=== PATIENT | male | born 1965 | race Caucasian/White ===

== ENCOUNTER 2020-12-09 10:32 | Inpatient (IN) | payer BC, SELFPAY ==
[2020-12-09] VITALS (17 sets, daily range): BP systolic 82–144; BP diastolic 54–107; PULSE 88–123; RESP 12–24; TEMP 36.6–37.8; O2SAT 93–100; BMI 35.4; BMI 32.8
--- NOTE | ~2020-12-09 | CT_ITS ---
EXAMINATION: CT brain wo con INDICATION: Headache COMPARISON: None TECHNIQUE: Standard unenhanced head CT. The dose-length product (DLP) was 605.33 mGy-cm. The mA was a djusted according to patient size. Iterative reconstruction technique was employed. FINDINGS: There is no intracranial hemorrhage, acute infarction, or abnormal mass lesion. The ventric les are normal. There is no abnormal mass effect or midline shift. The lynn-white matter differentiat ion is normal. The basal cisterns are patent. The orbits are normal. There is mild mucosal thickening of the paranasal sinuses. IMPRESSION: 1. No acute intracranial abnormality. Reviewed, dictated and finalized at location A.
--- NOTE | ~2020-12-09 | XR_ITS ---
EXAMINATION: XR chest 2V DATE: 12/09/2020 11:34 INDICATION: Cough. TECHNIQUE: Frontal and lateral views of the chest were obtained. COMPARISON: None. FINDINGS: There are airspace opacities in left mid and lower lung zones. No pleural effusion or pneum othorax. The heart size is normal. There are changes of posterior fusion procedure in cervical spine. There are surgical clips in the abdomen. IMPRESSION: 1. Airspace opacities in left mid and lower lung zones suspicious for pneumonia. Reviewed, dictated and finalized at location A. IMPRESSION: 1. Airspace opacities in left mid and lower lung zones suspicious for pneumonia .
--- NOTE | ~2020-12-09 | CT_ITS ---
EXAMINATION: CT cervical spine wo con DATE: 12/14/2020 10:48 INDICATION: Neck pain TECHNIQUE: Computed tomography (CT) of the cervical spine was performed without intravenous contrast. The dose-length product (DLP) was 425.39 mGy-cm. Automated exposure control and iterative reconstruc tion technique were employed. COMPARISON: None FINDINGS: There are changes of anterior fusion from C4 through C6 and posterior fusion and laminectom y from C3 through C7. The vertebral body heights are normal. There is no fracture. The odontoid is in tact. Groundglass opacities are present in the right lung apex. IMPRESSION: 1. Surgical changes without acute osseous abnormality Reviewed, dictated and finalized at location A.
--- NOTE | ~2020-12-09 | CT_ITS ---
EXAMINATION: CTA chest PE protocol DATE: 12/14/2020 10:48 INDICATION: Shortness of breath TECHNIQUE: Computed tomography angiography (CTA) of the chest was performed with 100 mL Omnipaque-350 intravenous contrast timed to evaluate the pulmonary arteries. Coronal maximum intensity projection 3D-reconstructions were created by the technologist. The dose-length product (DLP) was 932.05 mGy-cm. Automated exposure control and iterative reconstruction technique were employed. COMPARISON: None. FINDINGS: The pulmonary arteries are well-opacified. No pulmonary embolism is identified. There are g roundglass opacities involving all lung zones. No pleural effusion or pneumothorax is identified. The heart size is normal. There is mild bilateral hilar and mediastinal lymphadenopathy, likely reactive . The gallbladder is surgically absent. Surgical changes in the stomach likely reflect bariatric surg davian. There is mild thoracic spondylosis. IMPRESSION: 1. No pulmonary embolus. 2. Diffuse groundglass opacities in a pattern consistent with COVID 19 pneumonia. Reviewed, dictated and finalized at location A. IMPRESSION: 1. No pulmonary embolus. 2. Diffuse groundglass opacities in a pattern consistent with COVID 19 pneumoni a.
[2020-12-09 11:31] LABS: Eosinophils Percent Auto 0.5 % (0-4.4); Hematocrit 34.8 % (42.0-52.0); Hemoglobin 11.9 g/dL (14.0-18.0); Immature Granulocyte Absolute 0.02 K/mm3 (0.00-0.031); Immature Granulocyte Percent A 0.5 % (0-0.5); Lymphocytes Absolute Auto 0.31 K/mm3 (0.9-3.2); Lymphocytes Percent Auto 7.8 % (18.3-44.2); Mean Corpuscular HGB Conc 34.2 g/dl (32-36); Mean Corpuscular Hemoglobin 30.3 pg (26-34); Mean Corpuscular Volume 88.5 fl (80-100); Monocytes Absolute Auto 0.2 K/mm3 (0.1-0.6); Monocytes Percent Auto 4.3 % (2.6-8.5); Neutrophils Absolute Auto 3.5 K/mm3 (1.3-6.7); Neutrophils Percent Auto 86.9 % (45.5-73.1); Platelet Count Result 115 k/mm3 (150-375); Red Blood Count 3.93 M/mm3 (4.6-6.20); Red Cell Distribution Width 13.3 % (11.5-14.5)
[2020-12-09 11:43] LABS: Alanine Aminotransferase 28 U/L (4-50); Albumin Level 3.7 g/dL (3.5-5.1); Alkaline Phosphatase 80 U/L (38-126); Anion Gap 9 mmol/L (8-16); Aspartate Amino Transferase 43 U/L (17-59); Bilirubin,Total 0.8 mg/dL (0.2-1.3); Blood Urea Nitrogen 30 mg/dL (9-20); Calcium 9.1 mg/dL (8.4-10.2); Carbon Dioxide 27 mmol/L (22-30); Chloride 102 mmol/L (98-107); Estimated CRCL calculation 67 ml/min; Estimated Glomerular Filt Rate 57; Glucose 165 mg/dL (65-110); Potassium 3.7 mmol/L (3.4-5.0); Sodium 138 mmol/L (137-145)
[2020-12-09 12:03] LABS: Lactic Acid Reflex 1.6 mmol/L (0.7-2.1)
--- NOTE | 2020-12-09 13:32 | PC.NURSE ---
Per EDTaniya Espino via verbal order read-back, give another liter of normal saline
--- NOTE | 2020-12-09 13:32 | ED.GENADULT ---
HPI - General Adult General Chief complaint: Unspecified Stated complaint: arms hurting, COVID + Time Seen by Provider: 12/09/20 11:13 History of Present Illness HPI narrative: Patient is a 55-year-old male who presents ER with lightheadedness and change in vision. Ongoing over the last couple days. Associated with recent diagnosis of Covid. No runny nose or sore throat or productive cough. Reports he is diffusely achy. He has not had a Covid vaccination. No alleviating factors. Patient originally normotensive upon arrival here but then became hypotensive. He is unsure if this is related to his intermittent change in vision where he sees colors when he gets lightheaded. Related Data Allergies Allergy/AdvReac Type Severity Reaction Status Date / Time gabapentin Allergy Severe Other Verified 10/19/18 21:40 Review of Systems Review of Systems: All systems reviewed & are unremarkable except as noted in HPI and below Constitutional: Constitutional: Reports chills, Reports fatigue and Reports fever(s) Eyes: Eyes: Denies loss of vision and Reports spots in vision (When he gets lightheaded) Cardiovascular: Cardiovascular: Denies chest pain, Denies radiating jaw, neck or arm pain and Denies palpitations Respiratory: Respiratory: Denies chest congestion, Denies cough and Denies dyspnea Musculoskeletal: Musculoskeletal: Denies back pain, Reports myalgias and Denies muscle cramps Neurologic: Denies syncope, Denies focal weakness and Denies numbness PMFSH Past Medical History Medical History (Updated 12/09/20 @ 17:21 by Abdifatah Espino MD) Healthy adult male Surgical History Surgical History (Updated 12/09/20 @ 17:21 by Abdifatah Espino MD) No history of previous surgery Exam Narrative: GENERAL: Well-appearing, well-nourished, and in no acute distress. HEAD: Normocephalic, atraumatic. EYES: PERRL and EOMI. CHEST: Clear to auscultation. No respiratory distress. HEART: Regular rate and rhythm. Normal peripheral pulses. ABDOMEN: Soft, nontender, nondistended. EXTREMITIES: Normal range of motion. No edema. SKIN: Warm, dry, no rash. NEURO: Alert and oriented x3. PSYCH: Normal mood and affect. Course Course Emergency Course: Admit for observation. Patient with soft pressure. Has been hydrated. Will start on IV antibiotics for pneumonia as the area of infiltrate seems atypical for Covid pneumonia. Patient was [facility] and has developed this while in the ER. Vital Signs Vital signs: Vital Signs Temperature 99.7 F H 12/09/20 10:40 Pulse Rate 123 H 12/09/20 10:40 Respiratory Rate 18 12/09/20 10:40 Blood Pressure 144/107 H 12/09/20 10:40 Pulse Oximetry 99 12/09/20 10:40 Temperature 98.8 F 12/09/20 15:03 Pulse Rate 88 12/09/20 16:12 Respiratory Rate 16 12/09/20 16:12 Blood Pressure 96/69 L 12/09/20 16:12 Pulse Oximetry 100 12/09/20 16:12 Medical Decision Making Vital Signs Vital Signs: Vital Signs Temperature 99.7 F H 12/09/20 10:40 Pulse Rate 123 H 12/09/20 10:40 Respiratory Rate 18 12/09/20 10:40 Blood Pressure 144/107 H 12/09/20 10:40 Pulse Oximetry 99 12/09/20 10:40 Temperature 98.8 F 12/09/20 15:03 Pulse Rate 88 12/09/20 16:12 Respiratory Rate 16 12/09/20 16:12 Blood Pressure 96/69 L 12/09/20 16:12 Pulse Oximetry 100 12/09/20 16:12 Lab Data Result diagrams: 12/09/20 11:22 12/09/20 11:22 Labs: Lab Results 12/09/20 12/09/20 12/09/20 Range/Units 11:22 11:22 11:42 WBC 4.0 L (4.5-10.0) K/mm3 RBC 3.93 L (4.6-6.20) M/mm3 Hgb 11.9 L (14.0-18.0) g/dL Hct 34.8 L (42.0-52.0) % MCV 88.5 (80-100) fl MCH 30.3 (26-34) pg MCHC 34.2 (32-36) g/dl RDW 13.3 (11.5-14.5) % Plt Count 115 L (150-375) k/mm3 MPV 10.0 (7.4-10.4) fl Immature Gran % (Auto) 0.5 (0-0.5) % Neut % (Auto) 86.9 H (45.5-73.1) % Lymph % (Auto) 7.8 L (18.3
[2020-12-09] MEDS: SODIUM CHLORIDE 0.9% IV 1,000 ML 999 ML IV CONT (13:36)
--- NOTE | 2020-12-09 13:59 | PC.NURSE ---
Called lab. Magnesium added on at this time.
--- NOTE | 2020-12-09 14:05 | ECG_ITS ---
Measurements Intervals [place] Rate: 90 P: 62 AR: 173 QRS: -3 QRSD: 122 T: 18 QT: 362 QTc: 443 Interpretive Statements SINUS RHYTHM VENTRICULAR BIGEMINY INTRAVENTRICULAR CONDUCTION DELAY ABNORMAL ECG Electronically Signed On 12-09-2020 14:15:40 CDT by Tyshawn Xiao D.O.
[2020-12-09 14:41] LABS: Add Urine Microscopic? YES; Appearance Urine Clear (Clear); Bilirubin Urine Negative (Negative); Blood Urine Negative (Negative); Color Urine Yellow (Yellow); Glucose Urine UA Negative (Negative); Ketones Urine Trace mg/dL (Negative); Leukocyte Esterase Ur Negative LEU/UL (Negative); Nitrate Urine Negative (Negative); Protein Urine 1+ mg/dL (Negative); RBC Urine 0-2 /hpf (0-2); Specific Grav Ur 1.023 (1.001-1.035); WBC Clumps Urine Present /HPF; WBC Urine 16-20 /hpf
[2020-12-09 16:39] LABS: Magnesium 1.9 mg/dL (1.6-2.3)
[2020-12-09 16:54] LABS: Lactate Dehydrogenase 550 U/L (313-618)
[2020-12-09 17:11] LABS: CRP 15.5 mg/dL (<1.0)
[2020-12-09 17:24] LABS: Procalcitonin 1.7 ng/mL
--- NOTE | 2020-12-09 19:52 | PC.NURSE ---
May with the ED department called at 1930. Report given to this nurse. All questions answered and plan of care reviewed. Patient to go to IMU room 231.
--- NOTE | 2020-12-09 19:54 | ADMGEN ---
This patient, Los Joshi, was admitted to IMU Room 231-01 at 1945 from the Emergency department. Patient/family oriented to hospital policies and general routines including ID bracelet, bed and alarms, visiting hours, pain management, procedures, bathroom and other care routines, personal items, smoking policy, room service/diet, and visiting hours. Information on how to activate the Rapid Response Team has been discussed. Patient/Family are encouraged to report perceived risks to care and to ask questions if they do not understand what they are told or what they should do.
--- NOTE | 2020-12-09 21:09 | PM.IMHP ---
H&P: HPI History of Present Illness Date/Time: 12/09/20 21:09 Chief Complaint: MUSCLE ACHES AND PAIN Narrative: THIS IS A 55-YEAR-OLD MALE WITH PAST MEDICAL HISTORY SIGNIFICANT FOR CHRONIC PAIN SYNDROME PATIENT STATES THAT HE HAS HAD 30+ SURGERIES. HE PRESENTED TODAY TO THE EMERGENCY ROOM DUE TO MUSCLE ACHES AND PAINS GENERALIZED, NAUSEA VOMITING DIARRHEA, FEVERS CHILLS FOR ABOUT A WEEK OR SO. PATIENT DENIES ANY SHORTNESS OF BREATH ANY COUGH OR SPUTUM PRODUCTION HE HAS HAD VERY POOR APPETITE. HE HAS BEEN TAKING NYQUIL AT HOME. HE HAS TESTED POSITIVE FOR COVID-19 HIS IS ALSO SICK WITH COVID AT THE HOUSE HE DECIDED TO COME TO THE EMERGENCY ROOM TODAY DUE TO WORSENING BODY ACHES AND PAINS GENERAL MALAISE. PRELIMINARY WORKUP HAS BEEN SIGNIFICANT FOR ELEVATED INFLAMMATORY MARKERS A CHEST X-RAY WITH INFILTRATES. Review of Systems Review of Systems: BODY ACHES AND PAINS GENERALIZED MALAISE NAUSEA VOMITING AND DIARRHEA Constitutional: Constitutional: Denies chills, Reports fatigue, Denies fever(s), Reports lethargy, Reports malaise and Reports weakness Eyes: Eyes: Denies change in vision ENT: Denies dysphagia, Denies nasal congestion, Denies nasal discharge, Denies nasal obstruction and Denies odynophagia Cardiovascular: Cardiovascular: Denies irregular heart rhythm, Denies radiating jaw, neck or arm pain, Denies palpitations and Denies dyspnea Respiratory: Respiratory: Denies cough and Denies dyspnea Gastrointestinal: Gastrointestinal: Reports abdominal pain, Reports diarrhea, Reports nausea and Reports vomiting Genitourinary: Genitourinary: Reports no additional male genitourinary complaints Musculoskeletal: Musculoskeletal: Reports muscle weakness Integumentary/Breasts: Skin/Breast: Denies rash Neurologic: Reports system reviewed and no additional complaints, except as documented Psychiatric: Psychiatric: Reports no additional psychiatric complaints Endocrine: Endocrine: Reports no additional endocrine complaints Hematologic/Lymphatic: Hematologic/Lymphatic: Reports no additional hematologic/lymphatic complaints Allergic/Immunologic: Allergic/Immunologic: Reports no additional allergic/immunologic complaints [facility] Past Medical History Medical History (Updated 12/10/20 @ 00:54 by Eduardo Mijares MD) Healthy adult male Surgical History Surgical History (Updated 12/09/20 @ 17:21 by Abdifatah Espino MD) No history of previous surgery Family History Family History (Updated 12/09/20 @ 23:07 by Janki Copeland RN) Father Heart failure Mother Diabetes mellitus Sibling Diabetes mellitus Social History Social History Smoking packs per day: 1 Smoking cigarettes per day: 20.0 Years smoked: 25 Smoking pack-years: 25.00 Smoking status: Former smoker Tobacco type: cigarettes Alcohol intake: never Substance use: never Substance use type: does not use Gender identity (if verbalized by the patient): Male Spiritual care concerns: No Meds Home Medications and Allergies Home Medications Medication Instructions Recorded Confirmed Type amitriptyline 100 mg PO HS 12/09/20 12/09/20 History ibuprofen 800 mg PO TID PRN 12/09/20 12/09/20 History methocarbamol 750 mg PO TID 12/09/20 12/09/20 History morphine 15 mg PO Q8H 12/09/20 12/09/20 History pantoprazole 40 mg PO QAM 12/09/20 12/09/20 History simvastatin 40 mg PO HS 12/09/20 12/09/20 History valsartan 80 mg PO DAILY 12/09/20 12/09/20 History Allergies Allergy/AdvReac Type Severity Reaction Status Date / Time gabapentin Allergy Severe Other Verified 10/19/18 21:40 Vital Signs Vital Signs - 24 hr 12/09/20 10:40 12/09/20 11:01 12/09/20 11:51 Temperature 99.7 F H 100.1 F H Pulse Rate 123 H 112 H 97 Respiratory Rate 18 18 17 Blood Pressure 144/107 H 82/55 L 89/54 L Pulse Oximetry 99 95 99 12/09/20 12:19 12/09/20 12:34 12/09/20 13:47 Temperature 100.1 F H Pulse Rate 96 93 Respiratory Rate 20 [address]
[2020-12-10] VITALS (14 sets, daily range): BP systolic 100–136; BP diastolic 46–99; PULSE 73–109; RESP 12–20; TEMP 36.6–38.9; O2SAT 94–97
[2020-12-10] MEDS: methocarbamoL 750 MG TABLET PO ×3 (09:04→17:04)
[2020-12-10] MEDS: MORPHINE SULFATE (*CRX) 15 MG TABCR PO ×3 (09:04→23:39)
[2020-12-10] MEDS: PANTOPRAZOLE 40 MG TABLET PO (09:04)
[2020-12-10] MEDS: VALSARTAN 80 MG TABLET PO (09:04)
[2020-12-10] MEDS: ONDANSETRON INJ 4 MG/2 ML VIAL IV PUSH (13:09)
[2020-12-10] MEDS: polyethylene glycoL 3350 17 GM POWD.PACK PO (17:04)
--- NOTE | 2020-12-10 17:43 | PM.IMPN ---
Progress Note: A&P Assessment and Plan (1) Pneumonia due to COVID-19 virus: Code(s): U07.1 - COVID-19; J12.82 - Pneumonia due to coronavirus disease 2019 Status: Acute Assessment and Plan: On RA Continue with ROCEPHIN AND DOXYCYCLINE for now AWAIT CULTURE DOES NOT Meet CRITERIA FOR REMDESIVIR SUPPORTIVE CARE (2) Chronic pain syndrome: Code(s): G89.4 - Chronic pain syndrome Status: Acute Assessment and Plan: CONTINUE HOME PAIN MEDICATIONS CONTINUE TO MONITOR (3) Nausea and vomiting: Code(s): R11.2 - Nausea with vomiting, unspecified Status: Acute Assessment and Plan: SUPPORTIVE CARE CONTINUE TO MONITOR LIKELY SECONDARY TO PNEUMONIA AND SYSTEMIC INFLAMMATORY RESPONSE Subjective Date/time seen: 12/10/20 17:43 Interval history: pt seen and evaluated; no acute events overnight; denies any SOB Review of Systems Review of Systems: All systems reviewed & are unremarkable except as noted in HPI and below Exam Const: General: no acute distress, alert and awake Orientation/consciousness: patient oriented x3 HENMT: Head: normocephalic and atraumatic Ears: hearing grossly normal bilaterally and external ears normal Face and sinus: face symmetric Mouth: Yes Normal oral and palatal mucosa present Eyes: EOM: EOMs intact bilaterally Neck: Neck: full ROM, trachea midline and no JVD Thyroid: thyroid normal Chest: Chest palpation & inspection: normal inspection of the chest Resp: Effort & Inspection: normal respiratory effort Cardio: Jugular venous distension: no JVD Rate: regular rate Rhythm: regular rhythm Heart sounds: S1 normal heart sound present and S2 normal heart sound present GI: Inspection: normal to inspection GI Palp: Yes Soft to palpation Percussion: Yes normal to percussion Auscultation: normal bowel sounds : General: Yes no CVA tenderness Back/Spine/Pelvis: Back: no CVA tenderness Skin: General skin exam: normal color Rashes: no rashes Neuro: General: patient oriented x3 and CN's II-XI intact bilaterally Cranial nerves: Yes Equal, round and reactive pupils present Speech: normal speech Psych: Appearance: grossly normal Affect: normal affect Judgement: Good judgement present (Psych) Objective Data Vital Signs Vital Signs: Vital Signs - 24 hr 12/09/20 18:36 12/09/20 20:00 12/09/20 22:00 Temperature 36.6 C Pulse Rate 90 93 92 Respiratory Rate 16 20 Blood Pressure 105/65 107/56 L Pulse Oximetry 100 97 12/10/20 00:00 12/10/20 01:05 12/10/20 02:00 Temperature 36.9 C Pulse Rate 87 90 98 Respiratory Rate 16 Blood Pressure 100/59 L Pulse Oximetry 95 12/10/20 04:00 12/10/20 06:00 12/10/20 08:00 Temperature 36.6 C 37.1 C Pulse Rate 100 98 103 H Respiratory Rate 18 18 Blood Pressure 136/99 H 124/61 Pulse Oximetry 97 94 12/10/20 10:00 12/10/20 12:00 12/10/20 14:00 Temperature 37.6 C Pulse Rate 107 H 108 H 105 H Respiratory Rate 12 Blood Pressure 131/58 L Pulse Oximetry 95 Intake/Output Intake/Output: Intake & Output 12/07/20 12/08/20 12/09/20 12/10/20 23:59 23:59 23:59 23:59 Intake Total 4250 800 Output Total 200 450 Balance 4050 350 Meds/Results Medications: Active Medications Generic Name Dose Route Start Last Admin Trade Name Freq PRN Reason Stop Dose Admin Acetaminophen 650 mg 12/09/20 14:48 Acetaminophen 325 Mg Tablet PO Q4H PRN Mild Pain (1-3) or Fever Hydrocodone Bitart/Acetaminophen 1 tab 12/09/20 14:48 Hydrocodone/Acetaminophen (*Crx) 5-325 Mg Tablet PO Q4H PRN Pain Rated 4-6 Amitriptyline HCl 100 mg 12/10/20 21:00 Amitriptyline Hcl 25 Mg Tablet PO HS IRIVNG Doxycycline Hyclate 100 mg in 100 mls @ 100 mls/hr 12/10/20 06:00 12/10/20 17:04 Vibramycin 100 Mg/D5w 100 Ml IVPB 100 mls/hr Q12H IRVING Administration Ceftriaxone Sodium/Dextrose 1 gm in 50 mls @ 100 mls/hr 12/10/20 14:00 12/10/20 13:08 Ro
[2020-12-10] MEDS: ACETAMINOPHEN 325 MG TABLET 650 MG PO (17:46)
[2020-12-10] MEDS: SIMVASTATIN 20 MG TABLET 40 MG PO (20:48)
[2020-12-10] MEDS: AMITRIPTYLINE HCL 25 MG TABLET 100 MG PO (20:48)
[2020-12-11] VITALS (15 sets, daily range): BP systolic 89–130; BP diastolic 48–69; PULSE 69–103; RESP 16–22; TEMP 36.4–37.9; O2SAT 86–98
[2020-12-11] MEDS: MORPHINE SULFATE (*CRX) 15 MG TABCR PO ×3 (06:10→21:26)
[2020-12-11] MEDS: VALSARTAN 80 MG TABLET PO (09:27)
[2020-12-11] MEDS: PANTOPRAZOLE 40 MG TABLET PO (09:27)
[2020-12-11] MEDS: methocarbamoL 750 MG TABLET PO ×2 (09:27→13:31)
[2020-12-11 11:13] LABS: Hematocrit 31.3 % (42.0-52.0); Hemoglobin 10.4 g/dL (14.0-18.0); Mean Corpuscular HGB Conc 33.2 g/dl (32-36); Mean Corpuscular Hemoglobin 30.1 pg (26-34); Mean Corpuscular Volume 90.7 fl (80-100); Platelet Count Result 119 k/mm3 (150-375); Red Blood Count 3.45 M/mm3 (4.6-6.20); Red Cell Distribution Width 13.6 % (11.5-14.5); White Blood Count 3.3 K/mm3 (4.5-10.0)
--- NOTE | 2020-12-11 11:33 | PM.IMPN ---
Progress Note: A&P Assessment and Plan (1) Pneumonia due to COVID-19 virus: Code(s): U07.1 - COVID-19; J12.82 - Pneumonia due to coronavirus disease 2019 Status: Acute Assessment and Plan: Patient tested positive on 12/09/2020. CXR slightly atypical with airspace opacities in left mid and lower lung zones. He has not been vaccinated for COVID-19. Currently requiring 2 L supplemental O2. Continue O2 as needed with goal saturation 90% or above Will initiate dexamethasone and remdesivir given increased O2 requirements Discontinue antibiotics as I do not suspect secondary bacterial infection at this time Supportive care to include bronchodilators, expectorants, antipyretics, incentive spirometry Trend acute phase reactants (2) Hypotension: Code(s): I95.9 - Hypotension, unspecified Status: Acute Assessment and Plan: Complains of lightheadedness on standing. BP noted to be as low as 82/55. He was rehydrated with IV fluids and BP has improved. Last BP 126/64. Monitor blood pressure trends Check orthostatics Fall precautions Additional Plan Patient is hemodynamically stable and will downgrade to medical floor Subjective Date/time seen: 12/11/20 11:33 Interval history: Date of service: 12/12/2019 Los Joshi is a 55-year-old male with a history of hyperlipidemia who is seen in follow-up for COVID 19 pneumonia. He continues to feel poorly. His biggest complaint is that he feels lightheaded upon standing. He is able to walk independently but does just feel lightheaded during this. At rest he is comfortable. He denies shortness of breath, dyspnea on exertion, orthopnea. No chest pain, or palpitations. He has infrequent cough productive of sputum. He states he does not look at it and cannot report the color. Denies nausea, vomiting, fever, or chills. Appetite has been good. No anosmia or dysgeusia. No abdominal pain, no diarrhea. Denies urinary symptoms. No additional concerns at this time. Review of Systems Review of Systems: All systems reviewed & are unremarkable except as noted in HPI and below Exam Narrative: Mr. Joshi is a well-nourished 55-year-old male who is lying supine in bed. He appears comfortable and is in NARD. Neuro: awake, alert and oriented x4, speech clear, no focal neuro deficits noted HEENMT: normocephalic, atraumatic, EOMI, sclerae anicteric, moist oral mucosa Neck: supple, no lymphadenopathy Respiratory: clear to auscultation bilaterally, nonlabored breathing, able to speak in complete sentences Cardio: regular rate, regular rhythm with S1-S2 Abdomen: nondistended, normoactive bowel sounds, soft, nontender to palpation Extremities: no edema, erythema, or tenderness to palpation, DP pulses 2+ bilaterally Skin: no rashes or lesions, warm and dry Psych: appropriate mood and affect, judgment and insight intact Objective Data Vital Signs Vital Signs: Vital Signs - 24 hr 12/10/20 12:00 12/10/20 14:00 12/10/20 16:00 Temperature 99.6 F 102.1 F H Pulse Rate 108 H 105 H 100 Respiratory Rate 12 12 Blood Pressure 131/58 L 131/46 L Pulse Oximetry 95 97 12/10/20 18:00 12/10/20 18:46 12/10/20 20:00 Temperature 99.3 F 98.4 F Pulse Rate 98 96 Respiratory Rate 20 Blood Pressure 101/54 L Pulse Oximetry 97 12/10/20 22:00 12/11/20 00:00 12/11/20 02:00 Temperature 98.2 F Pulse Rate 88 90 92 Respiratory Rate 20 Blood Pressure 94/48 L Pulse Oximetry 93 12/11/20 04:00 12/11/20 06:00 12/11/20 08:00 Temperature 98.5 F 98.5 F Pulse Rate 93 90 87 Respiratory Rate 20 16 Blood Pressure 115/63 126/64 Pulse Oximetry 94 96 12/11/20 10:00 12/11/20 11:19 Temperature Pulse Rate 88 Respiratory Rate Blood Pressure Pulse Oximetry 93 Intake/Output Intake/Output: Intake & Output 12/08/20 12/09/20 12/10/20 12/11/20 23:59 23:59 23:59 23:59 Intake Total 4250 1190 600 Output Total 200 450 500
[2020-12-11 12:16] LABS: Alanine Aminotransferase 37 U/L (4-50); Albumin Level 2.9 g/dL (3.5-5.1); Alkaline Phosphatase 62 U/L (38-126); Anion Gap 6 mmol/L (8-16); Aspartate Amino Transferase 64 U/L (17-59); Bilirubin,Total 0.6 mg/dL (0.2-1.3); Blood Urea Nitrogen 16 mg/dL (9-20); CRP 20.3 mg/dL (<1.0); Calcium 8.6 mg/dL (8.4-10.2); Carbon Dioxide 26 mmol/L (22-30); Chloride 110 mmol/L (98-107); Estimated CRCL calculation 139 ml/min; Estimated Glomerular Filt Rate > 60; Glucose 92 mg/dL (65-110); Lactate Dehydrogenase 928 U/L (313-618); Sodium 142 mmol/L (137-145)
[2020-12-11 14:07] LABS: Ferritin > 2000.00 ng/mL (11.1-264)
[2020-12-11 14:31] LABS: INR 0.9; Prothrombin Time 12.4 Seconds (11.1-14.7)
[2020-12-11 14:33] LABS: Alanine Aminotransferase 37 U/L (4-50); Estimated CRCL calculation 121 ml/min; Estimated Glomerular Filt Rate > 60
[2020-12-11] MEDS: REMDESIVIR 200 MG/NS 250 ML 200 MG/250 ML BAG 250 MG IVPB (17:10)
[2020-12-11] MEDS: SIMVASTATIN 20 MG TABLET 40 MG PO (21:26)
[2020-12-11] MEDS: AMITRIPTYLINE HCL 25 MG TABLET 100 MG PO (21:29)
[2020-12-12] VITALS: BP 111/63; PULSE 76; RESP 20; TEMP 36.5; O2SAT 94
[2020-12-12 05:11] LABS: Hematocrit 33.4 % (42.0-52.0); Hemoglobin 11.1 g/dL (14.0-18.0); Mean Corpuscular HGB Conc 33.2 g/dl (32-36); Mean Corpuscular Hemoglobin 30.2 pg (26-34); Mean Corpuscular Volume 90.8 fl (80-100); Mean Platelet Volume 9.5 fl (7.4-10.4); Platelet Count Result 157 k/mm3 (150-375); Red Blood Count 3.68 M/mm3 (4.6-6.20); Red Cell Distribution Width 13.4 % (11.5-14.5); White Blood Count 3.3 K/mm3 (4.5-10.0)
[2020-12-12 05:24] LABS: INR 0.9; Prothrombin Time 12.4 Seconds (11.1-14.7)
[2020-12-12 05:31] LABS: Alanine Aminotransferase 45 U/L (4-50); Albumin Level 3.1 g/dL (3.5-5.1); Alkaline Phosphatase 64 U/L (38-126); Anion Gap 9 mmol/L (8-16); Aspartate Amino Transferase 70 U/L (17-59); Bilirubin,Total 0.7 mg/dL (0.2-1.3); Blood Urea Nitrogen 19 mg/dL (9-20); Calcium 9.2 mg/dL (8.4-10.2); Carbon Dioxide 25 mmol/L (22-30); Chloride 108 mmol/L (98-107); Estimated CRCL calculation 121 ml/min; Estimated Glomerular Filt Rate > 60; Glucose 162 mg/dL (65-110); Lactate Dehydrogenase 961 U/L (313-618); Potassium 4.3 mmol/L (3.4-5.0); Sodium 142 mmol/L (137-145)
[2020-12-12 05:40] LABS: CRP 21.8 mg/dL (<1.0)
[2020-12-12] MEDS: MORPHINE SULFATE (*CRX) 15 MG TABCR PO ×3 (05:57→22:03)
[2020-12-12 08:00] VITALS: O2SAT 92
[2020-12-12 08:27] VITALS: BP 107/65; PULSE 85; RESP 18; TEMP 36.1; O2SAT 93
[2020-12-12] MEDS: PANTOPRAZOLE 40 MG TABLET PO (08:40)
[2020-12-12] MEDS: ENOXAPARIN 40 MG/0.4 ML SYRINGE SUB-Q (08:40)
[2020-12-12] MEDS: VALSARTAN 80 MG TABLET PO (08:40)
--- NOTE | 2020-12-12 11:44 | PM.IMPN ---
Progress Note: A&P Assessment and Plan (1) Pneumonia due to COVID-19 virus: Code(s): U07.1 - COVID-19; J12.82 - Pneumonia due to coronavirus disease 2019 Status: Acute Assessment and Plan: Now on 2L ROCEPHIN AND DOXYCYCLINE d/c 'd BC NGTD REMDESIVIR and dexamethasone initiated yesterday with increased O2 requirement SUPPORTIVE CARE (2) Chronic pain syndrome: Code(s): G89.4 - Chronic pain syndrome Status: Acute Assessment and Plan: CONTINUE HOME PAIN MEDICATIONS CONTINUE TO MONITOR (3) Nausea and vomiting: Code(s): R11.2 - Nausea with vomiting, unspecified Status: Acute Assessment and Plan: Resolved LIKELY SECONDARY TO PNEUMONIA AND SYSTEMIC INFLAMMATORY RESPONSE Subjective Date/time seen: 12/12/20 11:44 Interval history: pt seen and evaluated; no acute events overnight; denies any SOB or CP Review of Systems Review of Systems: All systems reviewed & are unremarkable except as noted in HPI and below Exam Const: General: no acute distress, alert and awake Orientation/consciousness: patient oriented x3 HENMT: Head: normocephalic and atraumatic Ears: hearing grossly normal bilaterally and external ears normal Face and sinus: face symmetric Mouth: Yes Normal oral and palatal mucosa present Eyes: Pupils: Equal, round and reactive pupils present EOM: EOMs intact bilaterally Neck: Neck: full ROM, trachea midline and no JVD Thyroid: thyroid normal Chest: Chest palpation & inspection: normal inspection of the chest Resp: Effort & Inspection: normal respiratory effort Cardio: Jugular venous distension: no JVD Rate: regular rate Rhythm: regular rhythm Heart sounds: S1 normal heart sound present and S2 normal heart sound present GI: Inspection: normal to inspection Auscultation: normal bowel sounds : General: Yes no CVA tenderness Back/Spine/Pelvis: Back: no CVA tenderness Skin: General skin exam: normal color Rashes: no rashes Neuro: General: patient oriented x3 and CN's II-XI intact bilaterally Cranial nerves: Yes Equal, round and reactive pupils present Speech: normal speech Psych: Appearance: grossly normal Affect: normal affect Judgement: Good judgement present (Psych) Objective Data Vital Signs Vital Signs: Vital Signs - 24 hr 12/11/20 11:53 12/11/20 12:00 12/11/20 14:00 Temperature 36.4 C L 37.0 C Pulse Rate 69 80 97 Respiratory Rate 22 H 18 Blood Pressure 123/52 L 126/69 Pulse Oximetry 93 95 12/11/20 16:00 12/11/20 20:00 12/11/20 21:29 Temperature 37.9 C H 36.8 C Pulse Rate 92 99 Respiratory Rate 20 18 Blood Pressure 130/67 127/60 119/68 Pulse Oximetry 95 96 12/11/20 21:30 12/12/20 00:00 12/12/20 08:00 Temperature 36.5 C Pulse Rate 76 Respiratory Rate 20 Blood Pressure 89/54 L 111/63 Pulse Oximetry 94 92 12/12/20 08:27 Temperature 36.1 C L Pulse Rate 85 Respiratory Rate 18 Blood Pressure 107/65 Pulse Oximetry 93 Intake/Output Intake/Output: Intake & Output 12/09/20 12/10/20 12/11/20 12/12/20 23:59 23:59 23:59 23:59 Intake Total 4250 1190 1690 600 Output Total 581 268 8303 650 Balance 4050 740 290 -50 Meds/Results Medications: Active Medications Generic Name Dose Route Start Last Admin Trade Name Freq PRN Reason Stop Dose Admin Acetaminophen 650 mg 12/09/20 14:48 12/10/20 17:46 Acetaminophen 325 Mg Tablet PO 650 mg Q4H PRN Administration Mild Pain (1-3) or Fever Hydrocodone Bitart/Acetaminophen 1 tab 12/09/20 14:48 Hydrocodone/Acetaminophen (*Crx) 5-325 Mg Tablet PO Q4H PRN Pain Rated 4-6 Amitriptyline HCl 100 mg 12/10/20 21:00 12/11/20 21:29 Amitriptyline Hcl 25 Mg Tablet PO 100 mg HS IRVING Administration Dexamethasone Sodium Phosphate 6 mg 12/11/20 11:15 12/12/20 08:40 Dexamethasone Sod Phos Inj 10 Mg/Ml 1 Ml Vial IV PUSH 12/20/20 09:01 6 mg DAILY IRVING Administration Enoxaparin Sodium 40 mg 12/12/20 09:00
[2020-12-12 12:46] LABS: Ferritin > 2000.00 ng/mL (11.1-264)
[2020-12-12 16:35] VITALS: BP 102/64; PULSE 97; RESP 24; TEMP 36.6; O2SAT 94
[2020-12-12 20:00] VITALS: BP 117/66; PULSE 63; RESP 20; TEMP 36.8; O2SAT 90
[2020-12-12 20:30] VITALS: PULSE 70; RESP 20; O2SAT 90
[2020-12-12] MEDS: REMDESIVIR 100 MG/NS 250 ML 100 MG/250 ML BAG 250 MG IVPB (22:01)
[2020-12-12] MEDS: AMITRIPTYLINE HCL 25 MG TABLET 100 MG PO (22:02)
[2020-12-12] MEDS: SIMVASTATIN 20 MG TABLET 40 MG PO (22:03)
[2020-12-13] VITALS: BP 109/61; PULSE 73; RESP 18; TEMP 36.6; O2SAT 90
[2020-12-13 03:49] VITALS: BP 115/65; PULSE 70; RESP 20; TEMP 37.2; O2SAT 90
[2020-12-13] MEDS: MORPHINE SULFATE (*CRX) 15 MG TABCR PO ×3 (06:04→21:16)
[2020-12-13 07:18] LABS: Prothrombin Time 13.1 Seconds (11.1-14.7)
[2020-12-13 07:39] LABS: Alanine Aminotransferase 37 U/L (4-50)
[2020-12-13 07:40] LABS: Estimated CRCL calculation 138 ml/min; Estimated Glomerular Filt Rate > 60
[2020-12-13 08:23] VITALS: BP 114/64; PULSE 69; RESP 22; TEMP 36; O2SAT 91
[2020-12-13] MEDS: ENOXAPARIN 40 MG/0.4 ML SYRINGE SUB-Q (08:53)
[2020-12-13] MEDS: PANTOPRAZOLE 40 MG TABLET PO (08:53)
[2020-12-13] MEDS: VALSARTAN 80 MG TABLET PO (08:53)
--- NOTE | 2020-12-13 15:08 | PM.IMPN ---
Progress Note: A&P Assessment and Plan (1) Pneumonia due to COVID-19 virus: Code(s): U07.1 - COVID-19; J12.82 - Pneumonia due to coronavirus disease 2019 Status: Acute Assessment and Plan: On RA Rocephin and doxy d/c 'd BC NGTD Continue with REMDESIVIR and dexamethasone, day 3/5 SUPPORTIVE CARE (2) Chronic pain syndrome: Code(s): G89.4 - Chronic pain syndrome Status: Acute Assessment and Plan: CONTINUE HOME PAIN MEDICATIONS CONTINUE TO MONITOR (3) Nausea and vomiting: Code(s): R11.2 - Nausea with vomiting, unspecified Status: Acute Assessment and Plan: Resolved Subjective Date/time seen: 12/13/20 15:08 Interval history: pt seen and evaluated; no acute events overnight; denies any SOB or CP; now on RA Review of Systems Review of Systems: All systems reviewed & are unremarkable except as noted in HPI and below Exam Const: General: no acute distress, alert and awake Orientation/consciousness: patient oriented x3 HENMT: Head: normocephalic and atraumatic Ears: hearing grossly normal bilaterally and external ears normal Face and sinus: face symmetric Mouth: Yes Normal oral and palatal mucosa present Eyes: Pupils: Equal, round and reactive pupils present EOM: EOMs intact bilaterally Neck: Neck: full ROM, trachea midline and no JVD Thyroid: thyroid normal Chest: Chest palpation & inspection: normal inspection of the chest Resp: Effort & Inspection: normal respiratory effort Cardio: Jugular venous distension: no JVD Rate: regular rate Rhythm: regular rhythm Heart sounds: S1 normal heart sound present and S2 normal heart sound present GI: Inspection: normal to inspection Auscultation: normal bowel sounds : General: Yes no CVA tenderness Back/Spine/Pelvis: Back: no CVA tenderness Skin: General skin exam: normal color Rashes: no rashes Neuro: General: patient oriented x3 and CN's II-XI intact bilaterally Cranial nerves: Yes Equal, round and reactive pupils present Speech: normal speech Psych: Appearance: grossly normal Affect: normal affect Judgement: Good judgement present (Psych) Objective Data Vital Signs Vital Signs: Vital Signs - 24 hr 12/12/20 16:35 12/12/20 20:00 12/12/20 20:30 Temperature 36.6 C 36.8 C Pulse Rate 97 63 70 Respiratory Rate 24 H 20 20 Blood Pressure 102/64 117/66 Pulse Oximetry 94 90 90 12/13/20 00:00 12/13/20 03:49 12/13/20 08:23 Temperature 36.6 C 37.2 C 36.0 C L Pulse Rate 73 70 69 Respiratory Rate 18 20 22 H Blood Pressure 109/61 115/65 114/64 Pulse Oximetry 90 90 91 Intake/Output Intake/Output: Intake & Output 12/10/20 12/11/20 12/12/20 12/13/20 23:59 23:59 23:59 23:59 Intake Total 1190 1690 600 900 Output Total 450 1400 1150 Balance 740 290 -550 900 Meds/Results Medications: Active Medications Generic Name Dose Route Start Last Admin Trade Name Freq PRN Reason Stop Dose Admin Acetaminophen 650 mg 12/09/20 14:48 12/10/20 17:46 Acetaminophen 325 Mg Tablet PO 650 mg Q4H PRN Administration Mild Pain (1-3) or Fever Hydrocodone Bitart/Acetaminophen 1 tab 12/09/20 14:48 Hydrocodone/Acetaminophen (*Crx) 5-325 Mg Tablet PO Q4H PRN Pain Rated 4-6 Amitriptyline HCl 100 mg 12/10/20 21:00 12/12/20 22:02 Amitriptyline Hcl 25 Mg Tablet PO 100 mg HS IRVING Administration Dexamethasone Sodium Phosphate 6 mg 12/11/20 11:15 12/13/20 08:53 Dexamethasone Sod Phos Inj 10 Mg/Ml 1 Ml Vial IV PUSH 12/20/20 09:01 6 mg DAILY IRVING Administration Enoxaparin Sodium 40 mg 12/12/20 09:00 12/13/20 08:53 Enoxaparin 40 Mg/0.4 Ml Syringe SUB-Q 40 mg DAILY IRVING Administration Remdesivir 100 mg in 250 mls @ 250 mls/hr 12/12/20 22:00 12/12/20 22:01 IVPB 12/15/20 22:01 250 mls/hr Q24H IRVING Administration Methocarbamol 750 mg 12/11/20 17:00 Methocarbamol 750 Mg Tablet PO TID PRN Muscle spasm Morphine Sulfate 4 mg
[2020-12-13 16:00] VITALS: BP 129/70; PULSE 70; RESP 22; TEMP 36.6; O2SAT 94
[2020-12-13] MEDS: BENZONATATE 100 MG CAPSULE PO (16:27)
[2020-12-13 20:00] VITALS: BP 124/60; PULSE 69; RESP 18; TEMP 36.8; O2SAT 92
[2020-12-13] MEDS: SIMVASTATIN 20 MG TABLET 40 MG PO (21:16)
[2020-12-13] MEDS: AMITRIPTYLINE HCL 25 MG TABLET 100 MG PO (21:17)
[2020-12-13] MEDS: REMDESIVIR 100 MG/NS 250 ML 100 MG/250 ML BAG 250 MG IVPB (22:21)
[2020-12-14] VITALS (12 sets, daily range): BP systolic 103–139; BP diastolic 57–71; PULSE 51–64; RESP 15–18; TEMP 35.7–36.8; O2SAT 75–100
--- NOTE | 2020-12-14 | ECHO_ITS ---
Patient Info Name: Los Joshi Age: 55 years : 1965 Gender: Male Ht: 70 in Wt: 219 lbs BSA: 2.24 m2 HR: 52 bpm BP: 134 / 66 mmHg Heart Rhythm: Sinus Rhythm, Bradycardia Technical Quality: Fair Exam Date: 12/14/2020 12:18 PM Exam Location: [facility], Located Within [facility] Exam Room: 328 Patient Status: Inpatient Admit Date: 12/10/2020 Staff Ordering Physician: Dora Mata Master Control Supervisor: Yulisa Rojas RDCS Attending Provider: Elis Plunkett PA-C Referring Physician: Adolfo CARTY; Exam Type: CA echo doppler color flow Study Info Indications R00.1 - Bradycardia, unspecified Complete two-dimensional, color flow and Doppler transthoracic echocardiogram is performed. Summary 1. Complete two-dimensional, color flow and Doppler transthoracic echocardiogram is performed. 2. Mild left ventricular enlargement with normal left ventricular thickness. Moderate global hypokinesis present with no focal wall motion abnormalities.. Visual estimate of ejection fraction is 40%, calculated ejection fraction 34%.. Normal diastolic function. 3. Left atrial chamber dimension is mildly enlarged. 4. No significant valve disease. 5. Normal sinus rhythm with sinus bradycardia. Left Ventricle Left ventricular chamber dimension is mildly enlarged. Left ventricular systolic function is normal, estimated at 35-40%. There is no increased left ventricular wall thickness. Left ventricular septal wall motion is normal. The left ventricular diastolic function is normal. Right Ventricle Right ventricular chamber dimension is normal. Right ventricular systolic function is normal. Left Atria Left atrial chamber dimension is mildly enlarged. Right Atria Right atrial chamber dimension is normal. Aortic Valve The aortic valve is trileaflet. There is no aortic valve sclerosis. There is no aortic valve stenosis. There is no aortic valve regurgitation. Pulmonic Valve The pulmonic valve is normal. There is no pulmonic valve stenosis. There is no pulmonic regurgitation. Mitral Valve The mitral valve has normal leaflets. There is no mitral valve stenosis. There is trace mitral valve regurgitation. Tricuspid Valve The tricuspid valve leaflets are normal. There is no significant tricuspid valve stenosis. There is trace tricuspid valve regurgitation. No pulmonary hypertension, estimated pulmonary arterial systolic pressure is Empty. Pericardium/Pleural The pericardium appears normal. There is no pericardial effusion. Inferior Vena Cava Normal inferior vena cava with >50% collapse upon inspiration consistent with Empty right atrial pressure, Empty. Aorta The aortic root size at the sinus of Valsalva is normal. The prox ascending aorta size is normal. Left Ventricular Outflow Tract Name Value Normal LVOT 2D LVOT Diameter 2.0 cm LVOT Doppler LVOT Peak Gradient 5 mmHg LVOT Mean Gradient 2 mmHg LVOT VTI 22 cm LVOT VTI/AV VTI Ratio 1.0 LVOT Stroke V
[2020-12-14] MEDS: MORPHINE SULFATE (*CRX) 15 MG TABCR PO ×3 (05:43→21:17)
[2020-12-14 07:42] LABS: Basophils Percent Auto 0.3 % (0.2-1.2); Hematocrit 36.9 % (42.0-52.0); Hemoglobin 12.5 g/dL (14.0-18.0); Immature Granulocyte Absolute 0.32 K/mm3 (0.00-0.031); Lymphocytes Absolute Auto 0.66 K/mm3 (0.9-3.2); Lymphocytes Percent Auto 10.2 % (18.3-44.2); Mean Corpuscular HGB Conc 33.9 g/dl (32-36); Mean Corpuscular Hemoglobin 29.8 pg (26-34); Mean Corpuscular Volume 88.1 fl (80-100); Mean Platelet Volume 9.7 fl (7.4-10.4); Monocytes Absolute Auto 0.8 K/mm3 (0.1-0.6); Monocytes Percent Auto 11.6 % (2.6-8.5); Neutrophils Absolute Auto 4.7 K/mm3 (1.3-6.7); Neutrophils Percent Auto 72.9 % (45.5-73.1); Platelet Count Result 190 k/mm3 (150-375); Red Blood Count 4.19 M/mm3 (4.6-6.20); Red Cell Distribution Width 12.7 % (11.5-14.5); White Blood Count 6.4 K/mm3 (4.5-10.0)
[2020-12-14 08:08] LABS: Alanine Aminotransferase 34 U/L (4-50)
[2020-12-14] MEDS: PANTOPRAZOLE 40 MG TABLET PO (08:08)
[2020-12-14] MEDS: BENZONATATE 100 MG CAPSULE PO ×3 (08:08→17:44)
[2020-12-14] MEDS: VALSARTAN 80 MG TABLET PO (08:08)
[2020-12-14] MEDS: ENOXAPARIN 40 MG/0.4 ML SYRINGE SUB-Q (08:08)
[2020-12-14 08:09] LABS: Anion Gap 8 mmol/L (8-16); Blood Urea Nitrogen 24 mg/dL (9-20); Calcium 9.2 mg/dL (8.4-10.2); Carbon Dioxide 28 mmol/L (22-30); Chloride 104 mmol/L (98-107); Estimated CRCL calculation 138 ml/min; Estimated Glomerular Filt Rate > 60; Glucose 234 mg/dL (65-110); Potassium 3.9 mmol/L (3.4-5.0); Sodium 140 mmol/L (137-145)
--- NOTE | 2020-12-14 08:45 | ECG_ITS ---
Measurements Intervals [place] Rate: 53 P: 38 UT: 162 QRS: -1 QRSD: 108 T: 14 QT: 440 QTc: 414 Interpretive Statements SINUS BRADYCARDIA MINIMAL Q WAVES- HIGH LATERAL LEADS BORDERLINE ECG Electronically Signed On 12-14-2020 10:59:43 CDT by Tyshawn Xiao D.O.
[2020-12-14] MEDS: ACETAMINOPHEN 325 MG TABLET 650 MG PO (08:56)
[2020-12-14] MEDS: WATER FOR IRRIGATION, STERILE 1,000 ML BOTTLE 1000 ML (08:57)
[2020-12-14 09:13] LABS: Hemoglobin A1C 6.4 % (<5.7)
--- NOTE | 2020-12-14 10:38 | PCOTNOTE ---
Attempted OT evaluation, per RN patient currently being taken off the unit for testing, will follow and attempt at later time.
[2020-12-14 12:10] LABS: Glucose Point of Care 184 mg/dl (65-105)
[2020-12-14] MEDS: SODIUM CHLORIDE 0.9% IV 1,000 ML 75 ML IV CONT (12:28)
[2020-12-14 13:41] LABS: Glucose Point of Care 205 mg/dl (65-105)
[2020-12-14] MEDS: INSULIN ASPART (*BKC) 100 UNITS/ML SUB-Q ×2 (13:46→17:44)
--- NOTE | 2020-12-14 16:10 | PM.IMPN ---
Progress Note: A&P Assessment and Plan (1) Pneumonia due to COVID-19 virus: Code(s): U07.1 - COVID-19; J12.82 - Pneumonia due to coronavirus disease 2019 Status: Acute Assessment and Plan: Now 6L Rocephin and doxy d/c 'd BC NGTD Continue with REMDESIVIR and dexamethasone, day 4/5 SUPPORTIVE CARE (2) Chronic pain syndrome: Code(s): G89.4 - Chronic pain syndrome Status: Acute Assessment and Plan: CONTINUE HOME PAIN MEDICATIONS CONTINUE TO MONITOR (3) Nausea and vomiting: Code(s): R11.2 - Nausea with vomiting, unspecified Status: Acute Assessment and Plan: Resolved (4) Accident due to mechanical fall without injury: Code(s): W19.XXXA - Unspecified fall, initial encounter Status: Acute Assessment and Plan: CTA neg for PE CT of brain with no acute abnormality CT of neck with no acure abnormality ECG showed SR Will check ECHO Subjective Date/time seen: 12/14/20 16:10 Interval history: pt seen and evaluated; this morning patient sustained a ground level fall when walking from the bathroom; he says his legs buckled; he was found SOB with dyspnea and stated that he struck his head on the back of the floor; no visible injuries noted; he still complains of MORATAYA; now on 6L; he denied any dizziness, numbness, CP Review of Systems Review of Systems: All systems reviewed & are unremarkable except as noted in HPI and below Exam Const: General: no acute distress, alert and awake Orientation/consciousness: patient oriented x3 HENMT: Head: normocephalic and atraumatic Ears: hearing grossly normal bilaterally and external ears normal Face and sinus: face symmetric Mouth: Yes Normal oral and palatal mucosa present Eyes: Pupils: Equal, round and reactive pupils present EOM: EOMs intact bilaterally Neck: Neck: full ROM, trachea midline and no JVD Thyroid: thyroid normal Chest: Chest palpation & inspection: normal inspection of the chest Resp: Effort & Inspection: normal respiratory effort Cardio: Jugular venous distension: no JVD Rate: regular rate Rhythm: regular rhythm Heart sounds: S1 normal heart sound present and S2 normal heart sound present GI: Inspection: normal to inspection Auscultation: normal bowel sounds : General: Yes no CVA tenderness Back/Spine/Pelvis: Back: no CVA tenderness Skin: General skin exam: normal color Rashes: no rashes Neuro: General: patient oriented x3 and CN's II-XI intact bilaterally Cranial nerves: Yes Equal, round and reactive pupils present Speech: normal speech Psych: Appearance: grossly normal Affect: normal affect Judgement: Good judgement present (Psych) Objective Data Vital Signs Vital Signs: Vital Signs - 24 hr 12/13/20 20:00 12/14/20 00:00 12/14/20 04:00 Temperature 36.8 C 36.8 C 36.6 C Pulse Rate 69 61 56 L Respiratory Rate 18 18 18 Blood Pressure 124/60 122/61 137/71 Pulse Oximetry 92 91 93 12/14/20 08:05 12/14/20 08:08 12/14/20 08:33 Temperature 36.6 C Pulse Rate 64 58 L Respiratory Rate 16 15 Blood Pressure 122/60 134/66 Pulse Oximetry 96 90 75 L 12/14/20 08:37 12/14/20 08:45 12/14/20 12:00 Temperature 36.1 C L Pulse Rate 59 L 55 L 51 L Respiratory Rate 16 15 16 Blood Pressure 134/66 103/57 L 139/61 Pulse Oximetry 92 94 100 12/14/20 13:21 Temperature Pulse Rate Respiratory Rate Blood Pressure Pulse Oximetry 94 Intake/Output Intake/Output: Intake & Output 12/11/20 12/12/20 12/13/20 12/14/20 23:59 23:59 23:59 23:59 Intake Total 2534 408 9254 200 Output Total 1400 1150 Balance 290 -300 2140 200 Meds/Results Medications: Active Medications Generic Name Dose Route Start Last Admin Trade Name Juan Pabloq PRN Reason Stop Dose Admin Acetaminophen 650 mg 12/09/20 14:48 12/14/20 08:56 Acetaminophen 325 Mg Tablet PO 650 mg Q4H PRN Administration Mild Pain (1-3) or Fever Hydrocodone Bitart/Acetaminophen 1 tab 12/09/20
[2020-12-14 18:56] LABS: Glucose Point of Care 245 mg/dl (65-105)
[2020-12-14] MEDS: SIMVASTATIN 20 MG TABLET 40 MG PO (21:16)
[2020-12-14] MEDS: REMDESIVIR 100 MG/NS 250 ML 100 MG/250 ML BAG 250 MG IVPB (21:16)
[2020-12-14] MEDS: AMITRIPTYLINE HCL 25 MG TABLET 100 MG PO (21:16)
[2020-12-14 23:45] LABS: Glucose Point of Care 215 mg/dl (65-105)
[2020-12-15] VITALS (7 sets, daily range): BP systolic 121–148; BP diastolic 61–71; PULSE 60–77; RESP 18–20; TEMP 36.1–37.1; O2SAT 92–99
[2020-12-15] MEDS: SODIUM CHLORIDE 0.9% IV 1,000 ML 75 ML IV CONT ×2 (02:06→17:42)
[2020-12-15] MEDS: MORPHINE SULFATE (*CRX) 15 MG TABCR PO ×3 (05:54→21:57)
[2020-12-15 07:28] LABS: INR 1.1; Prothrombin Time 14.3 Seconds (11.1-14.7)
[2020-12-15 07:30] LABS: Alanine Aminotransferase 29 U/L (4-50); Estimated CRCL calculation 120 ml/min; Estimated Glomerular Filt Rate > 60
[2020-12-15] MEDS: ENOXAPARIN 40 MG/0.4 ML SYRINGE SUB-Q (08:38)
[2020-12-15] MEDS: VALSARTAN 80 MG TABLET PO (08:39)
[2020-12-15] MEDS: PANTOPRAZOLE 40 MG TABLET PO (08:39)
[2020-12-15] MEDS: BENZONATATE 100 MG CAPSULE PO ×3 (08:39→17:44)
[2020-12-15 08:40] LABS: Glucose Point of Care 163 mg/dl (65-105)
[2020-12-15 12:02] LABS: Glucose Point of Care 228 mg/dl (65-105)
[2020-12-15] MEDS: INSULIN ASPART (*BKC) 100 UNITS/ML SUB-Q ×2 (13:24→17:44)
--- NOTE | 2020-12-15 13:52 | PM.IMPN ---
Progress Note: A&P Assessment and Plan (1) Pneumonia due to COVID-19 virus: Code(s): U07.1 - COVID-19; J12.82 - Pneumonia due to coronavirus disease 2019 Status: Acute Assessment and Plan: Down to 4L HF Rocephin and doxy d/c 'd BC NGTD Continue with REMDESIVIR and dexamethasone, day 5/5 SUPPORTIVE CARE (2) Chronic pain syndrome: Code(s): G89.4 - Chronic pain syndrome Status: Acute Assessment and Plan: CONTINUE HOME PAIN MEDICATIONS CONTINUE TO MONITOR (3) Nausea and vomiting: Code(s): R11.2 - Nausea with vomiting, unspecified Status: Acute Assessment and Plan: Resolved (4) Accident due to mechanical fall without injury: Code(s): W19.XXXA - Unspecified fall, initial encounter Status: Acute Assessment and Plan: CTA neg for PE CT of brain with no acute abnormality CT of neck with no acute abnormality ECG showed SR ECHO pending Additional Plan Wean O2; d/c pending O2 requirements Subjective Date/time seen: 12/15/20 13:52 Interval history: 12/14: pt seen and evaluated; this morning patient sustained a ground level fall when walking from the bathroom; he says his legs buckled; he was found SOB with dyspnea and stated that he struck his head on the back of the floor; no visible injuries noted; he still complains of MORATAYA; now on 6L; he denied any dizziness, numbness, CP 12/15: no acute complaints; afebrile; on 4L; no dizziness or lightheadedness Review of Systems Review of Systems: All systems reviewed & are unremarkable except as noted in HPI and below Exam Const: General: no acute distress, alert and awake Orientation/consciousness: patient oriented x3 HENMT: Head: normocephalic and atraumatic Ears: hearing grossly normal bilaterally and external ears normal Face and sinus: face symmetric Mouth: Yes Normal oral and palatal mucosa present Eyes: Pupils: Equal, round and reactive pupils present EOM: EOMs intact bilaterally Neck: Neck: full ROM, trachea midline and no JVD Thyroid: thyroid normal Chest: Chest palpation & inspection: normal inspection of the chest Resp: Effort & Inspection: normal respiratory effort Cardio: Jugular venous distension: no JVD Rate: regular rate Rhythm: regular rhythm Heart sounds: S1 normal heart sound present and S2 normal heart sound present GI: Inspection: normal to inspection Auscultation: normal bowel sounds : General: Yes no CVA tenderness Back/Spine/Pelvis: Back: no CVA tenderness Skin: General skin exam: normal color Rashes: no rashes Neuro: General: patient oriented x3 and CN's II-XI intact bilaterally Cranial nerves: Yes Equal, round and reactive pupils present Speech: normal speech Psych: Appearance: grossly normal Affect: normal affect Judgement: Good judgement present (Psych) Objective Data Vital Signs Vital Signs: Vital Signs - 24 hr 12/14/20 16:00 12/14/20 20:00 12/14/20 23:58 Temperature 36.2 C L 35.7 C L 36.1 C L Pulse Rate 52 L 57 L 61 Respiratory Rate 18 18 18 Blood Pressure 118/60 119/63 123/58 L Pulse Oximetry 93 90 96 12/15/20 04:00 12/15/20 08:00 12/15/20 08:40 Temperature 36.1 C L 36.1 C L Pulse Rate 60 67 Respiratory Rate 20 18 Blood Pressure 126/71 121/61 Pulse Oximetry 99 98 92 12/15/20 12:00 Temperature 37.1 C Pulse Rate 63 Respiratory Rate 18 Blood Pressure 145/65 H Pulse Oximetry 96 Intake/Output Intake/Output: Intake & Output 12/12/20 12/13/20 12/14/20 12/15/20 23:59 23:59 23:59 23:59 Intake Total 850 2140 970 1310 Output Total 1150 300 300 Balance -300 2140 670 1010 Meds/Results Medications: Active Medications Generic Name Dose Route Start Last Admin Trade Name Freq PRN Reason Stop Dose Admin Acetaminophen 650 mg 12/09/20 14:48 12/14/20 08:56 Acetaminophen 325 Mg Tablet PO 650 mg Q4H PRN Administration Mild Pain (1-3) or Fever Hydrocodone Bitart/Acetaminophen 1 tab 12/09/20 14:48 [place]
[2020-12-15 16:48] LABS: Glucose Point of Care 262 mg/dl (65-105)
[2020-12-15 17:41] LABS: Alanine Aminotransferase 33 U/L (4-50)
[2020-12-15] MEDS: DOCUSATE SODIUM 100 MG CAPSULE PO (17:44)
[2020-12-15] MEDS: AMITRIPTYLINE HCL 25 MG TABLET 100 MG PO (21:58)
[2020-12-15] MEDS: SIMVASTATIN 20 MG TABLET 40 MG PO (21:59)
[2020-12-15] MEDS: REMDESIVIR 100 MG/NS 250 ML 100 MG/250 ML BAG 250 MG IVPB (21:59)
[2020-12-16] VITALS (7 sets, daily range): BP systolic 86–144; BP diastolic 49–74; PULSE 64–92; RESP 16–18; TEMP 35.8–36.8; O2SAT 91–98
[2020-12-16] MEDS: MORPHINE SULFATE (*CRX) 15 MG TABCR PO ×3 (05:05→21:44)
[2020-12-16 08:51] LABS: Alanine Aminotransferase 24 U/L (4-50); Albumin Level 2.5 g/dL (3.5-5.1); Alkaline Phosphatase 52 U/L (38-126); Anion Gap -1 mmol/L (8-16); Aspartate Amino Transferase 24 U/L (17-59); Bilirubin,Total 0.7 mg/dL (0.2-1.3); Blood Urea Nitrogen 19 mg/dL (9-20); Calcium 8.4 mg/dL (8.4-10.2); Carbon Dioxide 31 mmol/L (22-30); Chloride 107 mmol/L (98-107); Estimated CRCL calculation 120 ml/min; Estimated Glomerular Filt Rate > 60; Glucose 186 mg/dL (65-110); Potassium 4.4 mmol/L (3.4-5.0); Sodium 137 mmol/L (137-145)
[2020-12-16] MEDS: ENOXAPARIN 40 MG/0.4 ML SYRINGE SUB-Q (09:45)
[2020-12-16] MEDS: DOCUSATE SODIUM 100 MG CAPSULE PO (09:45)
[2020-12-16] MEDS: BENZONATATE 100 MG CAPSULE PO ×3 (09:45→16:48)
[2020-12-16] MEDS: VALSARTAN 80 MG TABLET PO (09:45)
[2020-12-16] MEDS: PANTOPRAZOLE 40 MG TABLET PO (09:45)
--- NOTE | 2020-12-16 12:11 | PM.IMPN ---
Progress Note: A&P Assessment and Plan (1) Pneumonia due to COVID-19 virus: Code(s): U07.1 - COVID-19; J12.82 - Pneumonia due to coronavirus disease 2019 Status: Acute Assessment and Plan: Down to 3L [place] Rocephin and doxy d/c 'd BC NGTD S/p REMDESIVIR and dexamethasone, day 5/5 Wean O2 (2) Chronic pain syndrome: Code(s): G89.4 - Chronic pain syndrome Status: Acute Assessment and Plan: CONTINUE HOME PAIN MEDICATIONS CONTINUE TO MONITOR (3) Nausea and vomiting: Code(s): R11.2 - Nausea with vomiting, unspecified Status: Acute Assessment and Plan: Resolved (4) Accident due to mechanical fall without injury: Code(s): W19.XXXA - Unspecified fall, initial encounter Status: Acute Assessment and Plan: CTA neg for PE CT of brain with no acute abnormality CT of neck with no acute abnormality ECG showed SR ECHO pending Additional Plan Wean O2; d/c pending O2 requirements Subjective Date/time seen: 12/16/20 12:11 Interval history: 12/14: pt seen and evaluated; this morning patient sustained a ground level fall when walking from the bathroom; he says his legs buckled; he was found SOB with dyspnea and stated that he struck his head on the back of the floor; no visible injuries noted; he still complains of MORATAYA; now on 6L; he denied any dizziness, numbness, CP 12/15: no acute complaints; afebrile; on 4L; no dizziness or lightheadedness 12/16: pt still complains of feeling weakness of BLE when up Review of Systems Review of Systems: All systems reviewed & are unremarkable except as noted in HPI and below Exam Const: General: no acute distress, alert and awake Orientation/consciousness: patient oriented x3 HENMT: Head: normocephalic and atraumatic Ears: hearing grossly normal bilaterally and external ears normal Face and sinus: face symmetric Mouth: Yes Normal oral and palatal mucosa present Eyes: Pupils: Equal, round and reactive pupils present EOM: EOMs intact bilaterally Neck: Neck: full ROM, trachea midline and no JVD Thyroid: thyroid normal Chest: Chest palpation & inspection: normal inspection of the chest Resp: Effort & Inspection: normal respiratory effort Cardio: Jugular venous distension: no JVD Rate: regular rate Rhythm: regular rhythm Heart sounds: S1 normal heart sound present and S2 normal heart sound present GI: Inspection: normal to inspection Auscultation: normal bowel sounds : General: Yes no CVA tenderness Back/Spine/Pelvis: Back: no CVA tenderness Skin: General skin exam: normal color Rashes: no rashes Neuro: General: patient oriented x3 and CN's II-XI intact bilaterally Cranial nerves: Yes Equal, round and reactive pupils present Speech: normal speech Psych: Appearance: grossly normal Affect: normal affect Judgement: Good judgement present (Psych) Objective Data Vital Signs Vital Signs: Vital Signs - 24 hr 12/15/20 16:00 12/15/20 20:00 12/15/20 20:20 Temperature 36.8 C 36.6 C Pulse Rate 61 77 77 Respiratory Rate 20 18 18 Blood Pressure 148/70 H 132/70 Pulse Oximetry 95 99 99 12/16/20 00:00 12/16/20 04:00 12/16/20 08:00 Temperature 35.8 C L 35.9 C L 36.8 C Pulse Rate 64 75 78 Respiratory Rate 18 18 18 Blood Pressure 127/66 133/67 142/69 H Pulse Oximetry 93 97 98 Intake/Output Intake/Output: Intake & Output 12/13/20 12/14/20 12/15/20 12/16/20 23:59 23:59 23:59 23:59 Intake Total 2140 970 3450 200 Output Total 300 1100 400 Balance 2140 670 2350 -200 Meds/Results Medications: Active Medications Generic Name Dose Route Start Last Admin Trade Name Juan Pabloq PRN Reason Stop Dose Admin Acetaminophen 650 mg 12/09/20 14:48 12/14/20 08:56 Acetaminophen 325 Mg Tablet PO 650 mg Q4H PRN Administration Mild Pain (1-3) or Fever Hydrocodone Bitart/Acetaminophen 1 tab 12/09/20 14:48 Hydrocodone/Acetaminophen (*Crx) 5-325 Mg Tablet PO Q4H PRN Pain Rated 4
[2020-12-16 13:57] LABS: Glucose Point of Care 189 mg/dl (65-105)
[2020-12-16] MEDS: INSULIN ASPART (*BKC) 100 UNITS/ML SUB-Q (16:48)
[2020-12-16 17:08] LABS: Glucose Point of Care 280 mg/dl (65-105)
[2020-12-16 17:44] LABS: Glucose Point of Care 254 mg/dl (65-105)
[2020-12-16] MEDS: SIMVASTATIN 20 MG TABLET 40 MG PO (21:43)
[2020-12-16] MEDS: AMITRIPTYLINE HCL 25 MG TABLET 100 MG PO (21:44)
[2020-12-17] VITALS (11 sets, daily range): BP systolic 100–146; BP diastolic 62–75; PULSE 60–87; RESP 16–20; TEMP 36.1–37.3; O2SAT 90–99
[2020-12-17] MEDS: VALSARTAN 80 MG TABLET PO (08:41)
[2020-12-17] MEDS: ENOXAPARIN 40 MG/0.4 ML SYRINGE SUB-Q (08:41)
[2020-12-17] MEDS: PANTOPRAZOLE 40 MG TABLET PO (08:41)
[2020-12-17] MEDS: BENZONATATE 100 MG CAPSULE PO ×3 (08:41→16:55)
[2020-12-17] MEDS: MORPHINE SULFATE (*CRX) 15 MG TABCR PO ×3 (08:41→21:20)
[2020-12-17] MEDS: DOCUSATE SODIUM 100 MG CAPSULE PO (08:41)
[2020-12-17 09:05] LABS: Glucose Point of Care 182 mg/dl (65-105)
--- NOTE | 2020-12-17 09:53 | PM.CNCAR ---
Assessment and Plan Assessment and plan (1) Heart failure with reduced ejection fraction: Code(s): I50.20 - Unspecified systolic (congestive) heart failure Status: Acute Assessment and Plan: Patient with no known prior cardiac history admitted to the hospital with COVID-19 infection/pneumonia. His found to have LV dysfunction with ejection fraction about 40% on the echocardiogram without any significant valvular abnormality. No significant volume overload at present. LV dysfunction possibly related to COVID 19 infection. -monitor volume status, may use diuretics on p.r.n. basis. No significant volume overload at present. -continue valsartan; add low-dose carvedilol 3.125 mg p.o. b.i.d., dose to be titrated as tolerated. -outpatient follow-up in the cardiology clinic after hospital discharge. Will repeat echocardiogram in about 6-8 weeks to check for improvement in the LV systolic function. Need for any additional cardiac workup will be determined as an outpatient. -recommend monitoring on telemetry while patient is admitted to check for any significant arrhythmias. (2) Pneumonia due to COVID-19 virus: Code(s): U07.1 - COVID-19; J12.82 - Pneumonia due to coronavirus disease 2018 Status: Acute Assessment and Plan: Management as per primary team. Patient has received remdesivir and steroids. He is on supplemental oxygen. History of Present Illness History of Present Illness Consult date/time: 12/17/20 09:53 DATE OF CONSULT: 12/17/2020 REASON FOR CONSULT: New onset systolic CHF REQUESTING PHYSICIAN:Ailyn Watts PA-C CHIEF COMPLAINT: Lightheadedness, generalized weakness HPI: 55-year-old male with history of hypertension, dyslipidemia, ? Chronic pain syndrome, recent COVID-19 infection. Patient presented to [facility] on 12/09/2020 with complaints of lightheadedness generalized weakness and change in the vision; and some shortness of breath. Patient reported that he had COVID-19 infection diagnosed few days prior to arrival to the hospital. Denies chest pain, palpitation, or syncope. He denied any known prior cardiac history. Patient is getting treatment for COVID-19 infection, and has received remdesivir and dexamethasone. He is on supplemental oxygen. EKG on presentation which I personally evaluated showed sinus rhythm with PVCs in the bigeminy fashion. Chest x-ray at presentation showed Airspace opacities in left mid and lower lung zones suspicious for pneumonia. Echo performed on 12/14/2020 reportedly showed mild LV enlargement, normal wall thickness, ejection fraction 40%, no significant valvular abnormality. CT head is unremarkable. CT chest negative for PE; shows diffuse groundglass opacities in a pattern consistent with COVID 19 pneumonia. Reason For Visit: covid/pneumonia/bigeminy Review of Systems Review of Systems: General: Positive for generalized fatigue Psychological: Negative for anxiety, depression Ophthalmic: negative for loss of vision ENT: Negative for epistaxis, headaches Allergy and immunology: Negative for hives, nasal congestion Hematologic and lymphatic: Negative for overt bleeding problems Endocrine: Negative for hot flashes, palpitations Respiratory: Negative for cough Cardiovascular: Negative for chest pain Gastrointestinal: Negative for abdominal pain Musculoskeletal: Negative for myalgia, joint pains Neurological: Positive for generalized weakness and unsteady gait Dermatological: Negative for rash, skin discoloration PMFSH Past Medical History Medical History Healthy adult male Surgical History Surgical History No history of previous surgery Family History Family History Father Heart failure Mother Diabetes mellitus Sibling Diabetes mellitus Social History S
--- NOTE | 2020-12-17 12:32 | PCNWS ---
Weekly nutritional screen. Patient is tolerating current diet with adequate intake. No nutritional needs at this time.
[2020-12-17 12:45] LABS: Glucose Point of Care 277 mg/dl (65-105)
[2020-12-17] MEDS: INSULIN ASPART (*BKC) 100 UNITS/ML SUB-Q ×2 (13:08→16:55)
[2020-12-17 16:32] LABS: Glucose Point of Care 373 mg/dl (65-105)
--- NOTE | 2020-12-17 18:38 | PM.IMPN ---
Progress Note: A&P Assessment and Plan (1) Pneumonia due to COVID-19 virus: Code(s): U07.1 - COVID-19; J12.82 - Pneumonia due to coronavirus disease 2019 Status: Acute Assessment and Plan: Off oxygen today -completed remdesivir -continue Decadron and Lovenox -home oxygen evaluation tomorrow -plan to discharge tomorrow morning as long as he remains stable (2) Chronic pain syndrome: Code(s): G89.4 - Chronic pain syndrome Status: Acute Assessment and Plan: CONTINUE HOME PAIN MEDICATIONS (3) Nausea and vomiting: Code(s): R11.2 - Nausea with vomiting, unspecified Status: Acute Assessment and Plan: Resolved (4) Accident due to mechanical fall without injury: Code(s): W19.XXXA - Unspecified fall, initial encounter Status: Acute Assessment and Plan: Patient had a fall while walking to the bathroom 12/14/20 -CT of brain with no acute abnormality -CT of neck with no acute abnormality -reorder PT and OT (5) Hyperglycemia: Code(s): R73.9 - Hyperglycemia, unspecified Status: Acute Assessment and Plan: Last glucose 373 -patient's A1c 6.4. He has a history of pre diabetes and is diet controlled. He does not require any medication according to him -hyperglycemia worsened due to steroids -will continue sliding scale insulin and add Lantus today -at diabetic diet (6) Heart failure with reduced ejection fraction: Code(s): I50.20 - Unspecified systolic (congestive) heart failure Status: Acute Assessment and Plan: Noted on echo, new for the patient. No history of cardiac disease -carvedilol started and will continue valsartan -cardiology consulted, plan for repeat echo in 6-8 weeks -no chest pain Time Spent With Patient Time with patient: 25 - 35 minutes Subjective Date/time seen: 12/17/20 18:38 Interval history: Pt is a 55-year-old male here for COVID pneumonia. Patient is feeling well today and was off oxygen this afternoon. Pt denies nausea, vomiting, fevers, chills, constipation, diarrhea, chest pain, sob, or abdominal pain. He has been walking to the bathroom and back but that is it. Review of Systems Review of Systems: All systems reviewed & are unremarkable except as noted in HPI and below Exam Narrative: General: Well developed well nourished patient in NAD HEENT: normocephalic Neck: supple Neuro: Alert and oriented x4 CV:RRR Resp:CTA Abd: Soft, non distended. No pain to palpation. Positive bowel sounds Extremities: No swelling, erythema, or pain to palpation. Objective Data Vital Signs Vital Signs: Vital Signs - 24 hr 12/16/20 20:00 12/16/20 21:50 12/17/20 00:56 Temperature 97.1 F L 97.8 F Pulse Rate 70 68 Respiratory Rate 18 16 Blood Pressure 142/68 H 143/70 H Pulse Oximetry 95 96 95 12/17/20 05:16 12/17/20 08:00 12/17/20 08:20 Temperature 97.9 F 97.0 F L Pulse Rate 60 72 Respiratory Rate 18 18 Blood Pressure 146/74 H 138/72 Pulse Oximetry 98 91 91 12/17/20 10:10 12/17/20 12:20 12/17/20 13:30 Temperature 99.1 F Pulse Rate 74 Respiratory Rate 18 Blood Pressure 143/75 H Pulse Oximetry 91 99 97 12/17/20 14:00 12/17/20 16:00 Temperature 97.4 F L Pulse Rate 87 Respiratory Rate 16 Blood Pressure 100/62 Pulse Oximetry 93 95 Intake/Output Intake/Output: Intake & Output 12/14/20 12/15/20 12/16/20 12/17/20 23:59 23:59 23:59 23:59 Intake Total 970 3450 980 1880 Output Total 300 4850 128 0888 Balance 670 2350 180 705 Meds/Results Medications: Active Medications Generic Name Dose Route Start Last Admin Trade Name Freq PRN Reason Stop Dose Admin Acetaminophen 650 mg 12/09/20 14:48 12/14/20 08:56 Acetaminophen 325 Mg Tablet PO 650 mg Q4H PRN Administration Mild Pain (1-3) or Fever Hydrocodone Bitart/Acetaminophen 1 tab 12/09/20 14:48 Hydrocodone/Acetaminophen (*Crx) 5-325
[2020-12-17] MEDS: SIMVASTATIN 20 MG TABLET 40 MG PO (21:20)
[2020-12-17] MEDS: INSULIN GLARGINE (*BKC) 100 UNITS/ML 6 UNITS SUB-Q (21:20)
[2020-12-17] MEDS: carvediloL 3.125 MG TABLET PO (21:21)
[2020-12-17] MEDS: AMITRIPTYLINE HCL 25 MG TABLET 100 MG PO (21:21)
[2020-12-17 21:26] LABS: Glucose Point of Care 292 mg/dl (65-105)
[2020-12-18] VITALS (10 sets, daily range): BP systolic 132–181; BP diastolic 61–83; PULSE 68–99; RESP 16–20; TEMP 36.3–36.7; O2SAT 87–97
[2020-12-18 06:44] LABS: Hematocrit 33.9 % (42.0-52.0); Hemoglobin 11.3 g/dL (14.0-18.0); Mean Corpuscular HGB Conc 33.3 g/dl (32-36); Mean Corpuscular Hemoglobin 29.8 pg (26-34); Mean Corpuscular Volume 89.4 fl (80-100); Mean Platelet Volume 10.1 fl (7.4-10.4); Platelet Count Result 201 k/mm3 (150-375); Red Blood Count 3.79 M/mm3 (4.6-6.20); Red Cell Distribution Width 12.9 % (11.5-14.5); White Blood Count 8.4 K/mm3 (4.5-10.0)
[2020-12-18 06:55] LABS: Anion Gap 3 mmol/L (8-16); Blood Urea Nitrogen 22 mg/dL (9-20); Calcium 8.8 mg/dL (8.4-10.2); Carbon Dioxide 31 mmol/L (22-30); Chloride 102 mmol/L (98-107); Estimated CRCL calculation 137 ml/min; Estimated Glomerular Filt Rate > 60; Glucose 227 mg/dL (65-110); Potassium 4.3 mmol/L (3.4-5.0); Sodium 136 mmol/L (137-145)
[2020-12-18 08:02] LABS: Glucose Point of Care 189 mg/dl (65-105)
[2020-12-18] MEDS: BENZONATATE 100 MG CAPSULE PO ×2 (08:44→12:45)
[2020-12-18] MEDS: ENOXAPARIN 40 MG/0.4 ML SYRINGE SUB-Q (08:44)
[2020-12-18] MEDS: carvediloL 3.125 MG TABLET PO (08:44)
[2020-12-18] MEDS: PANTOPRAZOLE 40 MG TABLET PO (08:44)
[2020-12-18] MEDS: MORPHINE SULFATE (*CRX) 15 MG TABCR PO ×2 (08:44→14:14)
[2020-12-18] MEDS: DOCUSATE SODIUM 100 MG CAPSULE PO (08:44)
[2020-12-18] MEDS: polyethylene glycoL 3350 17 GM POWD.PACK PO (08:45)
[2020-12-18] MEDS: VALSARTAN 80 MG TABLET PO (08:45)
--- NOTE | 2020-12-18 10:16 | PM.DS ---
DS: Admitting Diagnosis Admitting Diagnosis COVID DS: Discharge Diagnosis Discharge Diagnosis (1) Pneumonia due to COVID-19 virus: Code(s): U07.1 - COVID-19; J12.82 - Pneumonia due to coronavirus disease 2018 Status: Acute Assessment and Plan: Pt off o2 at rest but did require 2 L with activity at home -plan for outpt home o2 eval in one month to reassess -He was given remdesivir and decadron while hospitalized -informed that he would be eligible for the vaccine in 90 days -CTA showed no PE but did show diffuse COVID-19 changes (2) Chronic pain syndrome: Code(s): G89.4 - Chronic pain syndrome Status: Acute Assessment and Plan: CONTINUE HOME PAIN MEDICATIONS -advised that he should take less ibuprofen and we spoke about the risk of ulcers and kidney issues. He states he has been taking it for 20 years and has no plans to change but will talk to his pain management doctor (3) Nausea and vomiting: Code(s): R11.2 - Nausea with vomiting, unspecified Status: Acute Assessment and Plan: Resolved (4) Accident due to mechanical fall without injury: Code(s): W19.XXXA - Unspecified fall, initial encounter Status: Acute Assessment and Plan: Patient had a fall while walking to the bathroom 12/14/20 -CT of brain with no acute abnormality -CT of neck with no acute abnormality -patient doing well with PT at discharge (5) Hyperglycemia: Code(s): R73.9 - Hyperglycemia, unspecified Status: Acute Assessment and Plan: Last glucose 208 -patient's A1c 6.4. He has a history of pre diabetes and is diet controlled. He does not require any medication according to him -hyperglycemia worsened due to steroids -continue outpatient monitoring and diet control (6) Heart failure with reduced ejection fraction: Code(s): I50.20 - Unspecified systolic (congestive) heart failure Status: Acute Assessment and Plan: EF 34-40% on echo, new for the patient. No history of cardiac disease -carvedilol started and will continue valsartan -cardiology consulted, plan for repeat echo in 6-8 weeks -no chest pain DS: Summary Hospital Course Hospital Course: Date of service December 18, 2020 Patient is a 55-year-old male who was under vaccinated for COVID-19 who presented emergency room for lightheadedness, dizziness, and recent COVID infection. Vitals originally in the ER temperature 99.7?, pulse 123, respiratory rate 18, blood pressure 144/107, pulse ox 99 on room air. The patient was pancytopenic likely due to COVID with a white blood cell count 4.0, hemoglobin 11.9, platelets 115. Chest x-ray showed airspace opacities in the left and mid lower lung suspicious for pneumonia. Patient was admitted to the hospitalist service and started on remdesivir, Decadron and anticoagulation to prevent blood clots. Patient required oxygen throughout his stay up to 6L. His visual changes, lightheadedness and dizziness improved with oxygen. He did have a fall and a CT of his head was done which showed no acute abnormality C-spine showed no acute abnormality. An echocardiogram was done throughout his stay which showed a decreased EF which is new for the patient. He did not seem fluid overloaded or to be in active heart failure. Cardiology was consulted and started carvedilol on top of his already valsartan. They plan to repeat the echo and 6-8 weeks outpatient. The day of discharge, the patient felt back to baseline and much stronger. He was walking with physical therapy. He qualified for 2 L of oxygen with activity outpatient and this was ordered. He plans to follow up with his primary care physician in 1 month for repeat home oxygen evaluation. He was also educated about cardiac symptoms to come back to emergency room for. Overall, the patient was improved and was discharged in stable condition. Status at Discharge Overall status at discharg
--- NOTE | 2020-12-18 11:31 | HOMEO2EVAL ---
Evaluation was performed at [facility] Home Oxygen Evaluation RC: Home Oxygen (O2) Evaluation Start: 12/17/20 18:37 Freq: ONCE Status: Active Protocol: RPE Activity Type Activity Date Activity User E-Sign Co-Sign Detail Recorded Client Recorded Date Recorded By Document 12/18/20 10:55 DJO [email or web address] 12/18/20 11:31 DJO Document 12/18/20 11:05 [email or web address] [email or web address] 12/18/20 11:31 DJO Document 12/18/20 11:10 [email or web address] [email or web address] 12/18/20 11:31 DJO Document 12/18/20 11:25 [email or web address] [email or web address] 12/18/20 11:31 DJO 12/18/20 12/18/20 12/18/20 10:55 11:05 11:10 Home O2 Evaluation Test Phase Resting Exercise Exercise Oxygen Delivery Room Air Nasal Cannula Nasal Cannula Oxygen Flow Rate (L/min) 1 2 Pulse Oximetry (90-100 %) 90 87 L 90 Pulse Rate (60-100 beats/min) 76 99 99 Activity Tolerance Good Treatment Charges O2 Evaluation - Inpatient 12/18/20 11:25 Home O2 Evaluation Test Phase Resting Oxygen Delivery Room Air Oxygen Flow Rate (L/min) Pulse Oximetry (90-100 %) 90 Pulse Rate (60-100 beats/min) 74 Activity Tolerance Treatment Charges
[2020-12-18 12:39] LABS: Glucose Point of Care 208 mg/dl (65-105)
[2020-12-18] MEDS: INSULIN ASPART (*BKC) 100 UNITS/ML SUB-Q (12:44)
--- NOTE | 2020-12-18 13:08 | PM.PNCARD ---
Progress Note: A&P Assessment and Plan (1) Heart failure with reduced ejection fraction: Code(s): I50.20 - Unspecified systolic (congestive) heart failure Status: Acute Assessment and Plan: Patient with new cardiomyopathy, EF 40%, euvolemic. Already taking valsartan, carvedilol started. Reviewed diagnosis with patient, encouraged follow-up in our office. Patient will call if he develops any worsening shortness of breath, dizziness, chest pain, edema, dizziness or syncope, palpitations. (2) Pneumonia due to COVID-19 virus: Code(s): U07.1 - COVID-19; J12.82 - Pneumonia due to coronavirus disease 2019 Status: Acute Assessment and Plan: Improved (3) Bigeminy: Code(s): I49.8 - Other specified cardiac arrhythmias Status: Acute Assessment and Plan: Telemetry reviewed, frequent PVCs, couplets, one 7 beat run of ventricular tachycardia. Carvedilol started Potassium normal Asymptomatic Follow-up in the office Subjective Date/time seen: 12/18/20 13:08 Follow-up for cardiomyopathy and PVCs, new cardiomyopathy EF 40% Date of Service 12/08/2020: Patient is feeling well, not on O2, short of breath, eager for discharge. No dizziness or palpitations. Review of Systems Constitutional: Constitutional: Reports no additional constitutional complaints Eyes: Eyes: Reports no additional eye complaints ENT: Denies epistaxis Cardiovascular: Cardiovascular: Denies chest pain and Denies pedal edema Respiratory: Respiratory: Denies dyspnea Gastrointestinal: Gastrointestinal: Denies abdominal pain Genitourinary: Genitourinary: Denies dysuria Musculoskeletal: Musculoskeletal: Reports no additional musculoskeletal complaints Integumentary/Breasts: Skin/Breast: Reports system reviewed and no additional complaints, except as docu Neurologic: Reports system reviewed and no additional complaints, except as documented Exam Const: General: comfortable and no acute distress HENMT: General nose exam: no epistaxis Eyes: EOM: EOMs intact bilaterally Neck: Neck: supple Resp: Effort & Inspection: normal respiratory effort Auscultation: clear to auscultation bilaterally Cardio: Rate: regular rate Rhythm: regular rhythm Other: Occasional extrasystoles GI: Inspection: non-distended GI Palp: Yes Soft to palpation Skin: General skin exam: normal color and no rashes or lesions noted Neuro: Cognition (Neuro): normal cognition Speech: normal speech Other: Patient does not recall Dr. Montoya's visit but does remembers somebody said something was abnormal about his echo showing abnml heart Extrem: General: no edema and no pedal edema Psych: Mental Status: mental status grossly normal Objective Data Vital Signs Vital Signs: Vital Signs - 24 hr 12/17/20 13:30 12/17/20 14:00 12/17/20 16:00 Temperature 97.4 F L Pulse Rate 87 Respiratory Rate 16 Blood Pressure 100/62 Pulse Oximetry 97 93 95 12/17/20 20:00 12/17/20 21:21 12/18/20 00:00 Temperature 98.3 F 97.9 F Pulse Rate 84 82 68 Respiratory Rate 20 20 Blood Pressure 125/71 135/61 Pulse Oximetry 90 91 12/18/20 04:00 12/18/20 08:00 12/18/20 08:44 Temperature 97.3 F L 97.3 F L Pulse Rate 70 86 68 Respiratory Rate 20 16 Blood Pressure 142/68 H 148/69 H Pulse Oximetry 96 90 12/18/20 10:55 12/18/20 11:05 12/18/20 11:10 Temperature Pulse Rate 76 99 99 Respiratory Rate Blood Pressure Pulse Oximetry 90 87 L 90 12/18/20 11:25 12/18/20 12:00 Temperature 98.1 F Pulse Rate 74 83 Respiratory Rate 20 Blood Pressure 181/83 H Pulse Oximetry 90 97 Intake/Output Intake/Output: Intake & Output 12/15/20 12/16/20 12/17/20 12/18/20 23:59 23:59 23:59 23:59 Intake Total 3450 980 1880 500 Output Total 3709 681 6787 Balance 2350 180 705 500 Meds/Results Medications: Active Medications Generic Name Dose Route Start Last Admin Tra
--- NOTE | 2020-12-18 13:56 | PCRCNOTE ---
HOME O2 SET UP WITH [facility]. PHONE NUMBER [phone]. TANK HAS BEEN DELIVERED TO PT'S ROOM.
== END 2020-12-18 15:21 | disposition home or self-care (01) | DRG 177 ==
LOC: ANHED 17:18 → ANHIMU 18:46 → ANH3MEDSUR 12-14 14:43 → ANHIMU 12-19 15:25
PROVIDERS: Nurse Practitioner Adult Health; Physician Assistant; Admitting Provider Internal Medicine; Emergency Provider Emergency Medicine; PCP Family Medicine; Visit Provider Physician Assistant
DX: U07.1 COVID-19 (principal); J12.82 Pneumonia due to coronavirus disease 2019; I50.21 Acute systolic (congestive) heart failure; I42.9 Cardiomyopathy, unspecified; W18.39XA Other fall on same level, initial encounter; I49.3 Ventricular premature depolarization; G89.4 Chronic pain syndrome; R73.9 Hyperglycemia, unspecified; I11.0 Hypertensive heart disease with heart failure; E78.5 Hyperlipidemia, unspecified; Z87.891 Personal history of nicotine dependence
CPT/HCPCS: 36415; 51701; 70450; 71046; 71275; 72125; 80048; 80053; 81001; 82565; 82728; 82948; 83036; 83605; 83615; 83735; 84145; 84460; 85025; 85027; 85610; 86140; 87040; 87086; 93005; 93306; 94618; 96361; 96365; 96366; 96367; 96375; 97110; 97140; 97162; 97165; 97530; 97535; 99285; A9270; G0378; J0131; J0696; J1100; J1650; J1815; J2405; J7030; Q9967

== ENCOUNTER 2022-05-22 09:09 | Outpatient (CLI) | payer BC, SELFPAY ==
--- NOTE | 2022-05-22 | ECG_ITS ---
Measurements Intervals [place] Rate: 84 P: 55 AK: 182 QRS: -12 QRSD: 117 T: 34 QT: 370 QTc: 439 Interpretive Statements SINUS RHYTHM FREQUENT VENTRICULAR PREMATURE COMPLEXES INTRAVENTRICULAR CONDUCTION DELAY VOLTAGE CRITERIA FOR LVH ABNORMAL ECG COMPARED TO ECG 12/14/2020 09:05:15 SINUS RHYTHM NOW PRESENT INTRAVENTRICULAR CONDUCTION DELAY NOW PRESENT VENTRICULAR PREMATURE COMPLEXES NOW PRESENT Electronically Signed On 05-22-2022 10:12:00 PHARMACY INFORMATICS SPECIALIST by Tyshawn Xiao D.O.
== END 2022-05-22 09:10 | disposition home or self-care (01) ==
LOC: ANHLAB 09:13
PROVIDERS: PCP Family Medicine; Visit Provider Nurse Practitioner Family
DX: Z01.818 Encounter for other preprocedural examination (principal); I45.9 Conduction disorder, unspecified
CPT/HCPCS: 93005